=== PATIENT | male | born 1980 | race Caucasian/White ===

== ENCOUNTER 2023-06-12 14:55 | Emergency (ER) | payer OTHER, SELFPAY ==
[2023-06-12 15:30] VITALS: BP 210/129; PULSE 87; RESP 22; TEMP 36.8; O2SAT 95
--- NOTE | 2023-06-12 15:52 | ED_ITS ---
HPI - Male Genitourinary General Time Seen by Provider: 15:52 Date Seen: 06/12/23 Chief complaint: Urogenital Problems, Male Stated complaint: Blood in urine Time Seen by Provider: 06/12/23 15:52 Source: patient, RN notes reviewed and old records reviewed Mode of arrival: ambulatory Limitations: no limitations History of Present Illness HPI Narrative: 43-year-old male who presents with hematuria today. Earlier this afternoon, patient fell again to go bathroom, went the bathroom once and will pass urine. After trying a little longer he did pass urine that there was some blood. Subsequently he felt like he was unable to urinate and so came to the emergency department. In the emergency department patient initially had some difficulty going the bathroom, with some Valsalva he was able to pass which he describes as a clot and some blood with subsequent clearing of the urine. Patient has had no abdominal pain, fever, chills, nausea, vomiting, or flank pain. Denies any trauma. No prior symptoms like this. Related Data Previous Rx's Medication Instructions Recorded cefdinir 300 mg capsule 300 mg PO Q12H 10 days #20 caps 06/12/23 lisinopril 20 mg tablet 20 mg PO QDAY #30 tabs 06/22/23 Allergies Allergy/AdvReac Type Severity Reaction Status Date / Time No Known Drug Allergies Allergy Unverified 06/22/23 15:25 [facility] Social History (Updated 06/22/23 @ 16:27 by Zarina Jaime MD) Smoking Status: Former smoker What tobacco products do you use: cigarettes Smoking quit date/years: <= 15 years ago Do you use any of these nicotine containing products: None Second hand tobacco smoke exposure: No How often do you have a drink containing alcohol: 4 or more times a week How many standard drinks containing alcohol do you have on a typical day: 7 to 9 How often do you have six or more drinks on one occasion: Daily or almost daily AUDIT-C Alcohol total score: 11 Non-prescribed substance use: denies use Exam Narrative: Exam Narrative: General: Well-developed and well-nourished, no acute distress Head: Atraumatic and normocephalic Eyes: Pupils are equal reactive, extraocular motions intact, conjunctiva clear ENT: External nose and ears are normal, posterior pharynx without erythema or exudate Neck: No midline cervical tenderness, full spontaneous range of motion the neck, trachea midline, no adenopathy Heart: Regular rate and rhythm no murmurs or thrills Lungs: Clear to auscultation bilaterally without wheezes or crackles Abdomen: Soft, nontender, nondistended with active bowel sounds Musculoskeletal: No tenderness, deformity, or edema Neurologic: Awake, alert, and oriented x3, no gross focal neurologic deficits, cranial nerves intact as tested Psych: Mood and affect are appropriate Skin: No rashes Const: Vital Signs, click to edit/add: Vital Signs - 24 hr 06/12/23 15:30 06/12/23 17:13 Temperature 98.2 F Pulse Rate [Right Pulse Oximeter] 87 76 Respiratory Rate 22 20 Blood Pressure [Ri ght Upper Arm] 210/129 H 219/128 H Pulse Oximetry 95 96 Oxygen Delivery Me thod Room Air Room Air Course Course ED Course: Patient seen and examined, prior records reviewed. Patient presents today with painless hematuria. No flank pain to suggest obstruction, however concern for possible kidney stone given hematuria and CT scan review recommended. No other symptoms related to his hematuria, concern for possible urogenital malignancy including renal cancer or bladder cancer. CT urogram is ordered. Reevaluation(s) Time of Reevaluation #1: 17:15 Reevaluation #1: Urinalysis independently interpreted by me with red cells and white cells, white cells or outer portion red cells for sample being contaminated only with blood, additionally nitrate positive consistent with infection. Rocephin IV is ordered. Time of Reevaluation #2: 18:16 Reevaluation #2: CT scan independently interpreted by me does not demonstrate any acute hydronephrosis, no bladder masses, no ureteral obstruction. Patient is stable for discharge with outpatient follow-up. He has been able to urinate in the emergency department and is still having a little bit of pink tinging but gen erally clear. Time of Reevaluation #3: 19:04 Reevaluation #3: CT scan discussed with radiology- concern for some soft tissue mass on the left kidney, recommends MRI for further evaluation. This can be done as an outpatient. Patient will be treated for urinary tract infection and plan for discharge. Additional Reevaluation(s): 7:30 p.m. discussed findings and follow-up with patient. Has no primary care doctor currently. He is planning to follow-up at [facility]. We discussed need for follow-up MRI. I spoke with the [facility] who recommends patient call for a follow-up appointment, appointment lined number given to the patient. If he is having difficulty, he should contact [facility] in clinic for an appointment with primary care to start the process for getting an MRI and subsequent outpatient follow-up when this is done. Vital Signs Vital signs: Initial Vital Signs Temperature 98.2 F 06/12/23 15:30 Temperature Source Temporal Artery Scan 06/12/23 15:30 Pulse Rate 87 06/12/23 15:30 Pulse Rhythm Regular 06/12/23 15:30 Pulse Strength 3+ Normal 06/12/23 15:30 Respiratory Rate 22 06/12/23 15:30 Blood Pressure 210/129 H 06/12/23 15:30 Blood Pressure Mean 156 H 06/12/23 15:30 Blood Pressure Position Sitting 06/12/23 15:30 Pulse Oximetry 95 06/12/23 15:30 Oxygen Delivery Method Room Air 06/12/23 15:30 Vital Signs Temperature 98.2 F 06/12/23 15:30 Pulse Rate 87 06/12/23 15:30 Respiratory Rate 22 06/12/23 15:30 Blood Pressure 210/129 H 06/12/23 15:30 Pulse Oximetry 95 06/12/23 15:30 Oxygen Delivery Method Room Air 06/12/23 15:30 Temperature 98.2 F 06/12/23 15:30 Pulse Rate 76 06/12/23 17:13 Respiratory Rate 20 06/12/23 17:13 Blood Pressure 219/128 H 06/12/23 17:13 Pulse Oximetry 96 06/12/23 17:13 Oxygen Delivery Method Room Air 06/12/23 17:13 MDM - Male Genitourinary Lab Data Labs: Lab Results 06/12/23 06/12/23 Range/Units 15:34 17:00 WBC 9.15 (4.50-11.00) K/uL RBC 5.51 (4.30-5.90) m/uL Hgb 16.4 (13.5-17.5) gm/dL Hct 47.9 (37.0-53.0) % MCV 87 (80-100) fL MCH 30 (26-34) pg MCHC 34 (32-36) gm/dL RDW Coeff of [place] 12.8 (11.5-15.5) % Plt Count 367 (140-440) K/uL Neut % (Auto) 67.8 (42.0-72.0) % Lymph % (Auto) 20.1 (20-44) % [place] % (Auto) 8.4 (0.0-11.0) % Eos % (Auto) 2.7 (0.0-7.0) % Baso % (Auto) 0.2 (0.0-3.0) % Neut # (Auto) 6.20 (1.7-7.0) K/uL Lymph # (Auto) 1.84 (0.90-2.90) K/uL [place] # (Auto) 0.80 (0.00-0.90) K/UL Eos # (Auto) 0.25 (0.00-0.50) K/uL Baso # (Auto) 0.02 (0.00-0.30) K/uL Abs Immat Gran (auto) 0.07 (0.00-0.30) K/uL Imm/Tot Granulo (auto) 0.8 % Sodium 139 (135-149) mmol/L Potassium 4.0 (3.6-5.1) mmol/L Chloride 105 (96-114) mmol/L Carbon Dioxide 24 (20-32) mmol/L Anion Gap 10 (7-15) mEq/L BUN 12 (5-24) mg/dL Creatinine 0.7 (0.5-1.5) mg/dL Estimated GFR 117 ml/min Glucose 97 (60-115) mg/dL Calcium 10.0 (8.4-10.6) mg/dL Urine Color Red A (Yellow) Urine Appearance Cloudy A (Clear) Urine pH 7.0 (5.0-8.5) Ur Specific [place] 1.020 (1.000-1.030) Urine Protein 2+ A (Negative) Urine Glucose (UA) Negative (Negative) Urine Ketones Trace A (Negative) Urine Blood 3+ A (Negative) Urine Nitrite Positive A (Negative) Urine Bilirubin 1+ A (Negative) Urine Urobilinogen 0.2 (0.2-1.0) Ur Leukocyte Esterase Trace A (Negative) Urine RBC 50-100 A (0-2) Urine WBC 25-50 A (0-5) Ur Squamous Epith Cells None (None-Few) Urine Bacteria None (None) Discharge Plan Discharge Clinical Impression: Urinary tract infection with hematuria, Left renal mass Patient Disposition: Home, Self-Care Condition: Stable Instructions: Urinary Tract Infection in Men (DC) Additional Instructions: Take antibiotics as prescribed Make sure you are drinking plenty of fluids Your CT scan today shows a 6 cm x 7 cm x 6 cm mass in the left kidney which is concerning for renal cell carcinoma. This will need further evaluation with an MRI and you will need to follow-up with urology. Follow-up as soon as possible to discuss further testing (MRI of the kidney). You can call [facility] at [phone] to schedule an appointment with urology. If you are having difficulty scheduling, contact [facility] at [phone] to establish primary care and schedule follow-up. Activity Level: Activity as Tolerated Discharge Diet: Regular Prescriptions: New cefdinir 300 mg capsule 300 mg PO Q12H 10 Days Qty: 20 0RF No Action lisinopril 20 mg tablet 20 mg PO QDAY Qty: 30 12RF Follow Up/Referrals: Pola Solis MD [Referring] - Stand Alone Forms: [employer] Info Instructions
[2023-06-12 16:35] LABS: Appearance Urine Cloudy (Clear); Color Urine Red (Yellow)
[2023-06-12 16:36] LABS: Bilirubin Urine 1+ (Negative); Blood Urine 3+ (Negative); Glucose Urine Negative (Negative); Ketones Urine Trace (Negative)
[2023-06-12 16:38] LABS: Protein Urine 2+ (Negative); Urobilinogen Urine 0.2 (0.2-1.0)
[2023-06-12 16:39] LABS: Leukocyte Esterase Urine Trace (Negative); Nitrite Urine Positive (Negative); RBC Urine 50-100 (0-2); WBC Urine 25-50 (0-5)
--- NOTE | 2023-06-12 16:48 | CRLHL7_ITS ---
For Patients: As a result of the Century Cures Act, medical imaging exams and procedure reports are released immediately into your electronic medical record. You may view this report before your referring provider. If you have questions, please contact your health care provider. INDICATION: Painless hematuria. TECHNIQUE: CT abdomen and pelvis acquired without and with 100 cc Isovue 370 IV contrast. COMPARISON: None. FINDINGS: Lower chest: Unremarkable. Liver: Unremarkable. Normal in size and attenuation. No suspicious masses. Gallbladder and bile ducts: Unremarkable. No stones or inflammation. No biliary dilatation. Pancreas: Unremarkable. No mass or inflammation. Spleen: Unremarkable. Normal in size. No masses. Adrenal glands: Unremarkable. No nodules. Kidneys: Lobulated mass at the superior pole of the left kidney measuring 5.9 x 5.8 x 7.0 centimeters. Predominant portion of the contrast within the collecting system, ureters and bladder and just minimal contrast enhancement is noted within the renal parenchyma limiting evaluation of the mass itself. Adjacent few prominent vessels and prominent lymph nodes are noted. No hydronephrosis or hydroureter bilaterally. No renal stones identified bilaterally. GI tract: Unremarkable. Normal in caliber. No sign of mass or inflammation. Normal appendix. Vasculature: Abdominal aorta is normal in caliber. Mesenteric arteries are patent. Lymph nodes: No lymphadenopathy. Peritoneum/Abdominal Wall: Fat containing right inguinal hernia. No sign of mass or infiltration. No free air or significant free fluid. Pelvis: Unremarkable. Bones: Unremarkable for age. IMPRESSION: Lobulated mass at the superior pole of the left kidney measuring up to 7 centimeters in diameter, most suspicious for primary renal carcinoma (RCC). Recommend outpatient renal mass protocol MRI or CT for further characterization. Findings discussed with Dr. Chamorro at 7:07 pm on 06/12/[address] Isabel. Please note that all CT scans at this facility use dose modulation, iterative reconstruction, and/or weight-based dosing when appropriate to reduce radiation dose to as low as reasonably achievable. Dictated by Lencho Isabel MD @ 06/12/2023 7:09:10 PM (Electronically Signed)
[2023-06-12 17:07] LABS: Basophils Absolute Auto 0.02 K/uL (0.00-0.30); Basophils Percent Auto 0.2 % (0.0-3.0); Eosinophils Absolute Auto 0.25 K/uL (0.00-0.50); Eosinophils Percent Auto 2.7 % (0.0-7.0); Hematocrit 47.9 % (37.0-53.0); Hemoglobin* 16.4 gm/dL (13.5-17.5); Immature Granulocytes Abs Auto 0.07 K/uL (0.00-0.30); Immature Granulocytes Pct Auto 0.8 %; Lymphocytes Absolute Auto 1.84 K/uL (0.90-2.90); Lymphocytes Percent Auto 20.1 % (20-44); Mean Corpuscular HGB Conc 34 gm/dL (32-36); Mean Corpuscular Hemoglobin 30 pg (26-34); Mean Corpuscular Volume 87 fL (80-100); Monocytes Percent Auto 8.4 % (0.0-11.0); Neutrophils Percent Auto 67.8 % (42.0-72.0); Platelet Count* 367 K/uL (140-440); RDW Coefficient of Variation % 12.8 % (11.5-15.5); Red Blood Count 5.51 m/uL (4.30-5.90); White Blood Count* 9.15 K/uL (4.50-11.00)
[2023-06-12 17:13] VITALS: BP 219/128; PULSE 76; RESP 20; O2SAT 96
[2023-06-12 17:18] LABS: Slide Review Reflex No
[2023-06-12 17:21] LABS: Chloride* 105 mmol/L (96-114); Sodium* 139 mmol/L (135-149)
[2023-06-12 17:23] LABS: Creatinine* 0.7 mg/dL (0.5-1.5); Estimated Glomerular Filt Rate 117 ml/min
[2023-06-12 17:24] LABS: Anion Gap 10 mEq/L (7-15); Blood Urea Nitrogen* 12 mg/dL (5-24); Carbon Dioxide* 24 mmol/L (20-32); Glucose* 97 mg/dL (60-115)
[2023-06-12] MEDS: cefTRIAXone 2 GM in 0.9 % SODIUM CHLORIDE Mini-bag 100 ML IVPB (17:35)
== END 2023-06-12 20:14 | disposition home or self-care (01) ==
PROVIDERS: Emergency Medicine Emergency Medical Services; Emergency Provider Family Medicine
DX: N30.01 Acute cystitis with hematuria (principal); D49.519 Neoplasm of unspecified behavior of unspecified kidney
CPT/HCPCS: 36415; 74178; 80048; 81001; 81003; 81015; 85025; 87086; 96365; 99284; J0696; Q9967

== ENCOUNTER 2023-06-22 15:41 | Outpatient (CLI) | payer OTHER, SELFPAY | END 2023-06-22 15:42 | disposition home or self-care (01) | PROVIDERS: Visit Provider Family Medicine | DX: I10 Essential (primary) hypertension (principal); E66.9 Obesity, unspecified; N28.89 Other specified disorders of kidney and ureter; N39.0 Urinary tract infection, site not specified; Z11.59 Encounter for screening for other viral diseases; Z13.6 Encounter for screening for cardiovascular disorders | CPT/HCPCS: 80061; 82043; 82570; 84156; 86803 ==

== ENCOUNTER 2023-08-09 19:19 | Outpatient (CLI) | payer OTHER, SELFPAY ==
--- NOTE | 2023-08-29 09:00 | W.PM.SLEEP ---
Sleep Study Details Details Interpreting Provider: Timoteo Date of Sleep Study: 08/09/23 Sleep Study Details: STUDY TYPE:? Home unattended ? BMI:? 44.2 ORDERING PROVIDER:Shannon Jaime INDICATION:? Concerns about sleep apnea ? SLEEP SUMMARY:? 492 minutes RESPIRATORY SUMMARY:? AHI 14.9, supine 23.3, left lateral 7.5, right lateral 20.3 Low oxygen 83 2.6% of study oxygen below 90% Snoring 29.9% PERIODIC LIMB MOVEMENTS OF SLEEP:? Not recorded during home study CARDIAC:? Range 54-100, mean 65.9 IMPRESSION:? Mild to moderate obstructive sleep apnea worse in the supine and right lateral positions RECOMMENDATION: Treatment options include CPAP AutoSet 4-17, dental appliance, weight loss and/or airway expansion surgery.
== END 2023-08-09 19:20 | disposition home or self-care (01) ==
LOC: SLEEP 19:27
PROVIDERS: PCP Family Medicine; Visit Provider Family Medicine
DX: G47.33 Obstructive sleep apnea (adult) (pediatric) (principal)
CPT/HCPCS: 95806

== ENCOUNTER 2023-09-22 13:55 | Outpatient (CLI) | payer BC, SELFPAY | END 2023-09-22 13:56 | disposition home or self-care (01) | LOC: FRMREF 13:56 | PROVIDERS: PCP Family Medicine; Visit Provider Family Medicine | DX: I10 Essential (primary) hypertension (principal) | CPT/HCPCS: 80048 ==

== ENCOUNTER 2025-07-10 14:39 | Outpatient (CLI) | payer BC, SELFPAY | END 2025-07-10 14:40 | disposition home or self-care (01) | PROVIDERS: PCP Family Medicine; Visit Provider Family Medicine | DX: I10 Essential (primary) hypertension (principal); Z90.5 Acquired absence of kidney | CPT/HCPCS: 80053; 80061; 82043; 82570 ==